=== PATIENT | female | born 1950 | race Caucasian/White ===

== ENCOUNTER 2023-01-30 08:34 | Emergency (ER) | payer OTHER ==
[~2023-01-30] VITALS: Ht 162.6 cm; Wt 69.9 kg
[2023-01-30 08:44] VITALS: BP_SYST 163
[2023-01-30] MEDS ORDERED: KETOROLAC TROMETHAMINE 60 MG/2 ML VIAL IM ONE (09:30)
[2023-01-30] MEDS ORDERED: IBUP-1971 PO (09:42)
[2023-01-30] MEDS ORDERED: HYDR-3917 PO ×2 (09:42)
[2023-01-30 09:47] LABS: BILIRUBIN,URINE NEGATIVE (NEGATIVE); BLOOD, URINE TRACE (NEGATIVE); CLARITY/URINE SLIGHTLY HAZY (CLEAR); COLOR,URINE YELLOW (YELLOW); GLUCOSE,URINE NEGATIVE (NEGATIVE); KETONES,URINE NEGATIVE (NEGATIVE); LEUKOCYTE ESTERASE ,URINE NEGATIVE (NEGATIVE); NITRITE, URINE NEGATIVE (NEGATIVE); PROTEIN URINE NEGATIVE (NEGATIVE); UROBILINOGEN,URINE 0.2 (0.2-1.0)
[2023-01-30 09:51] LABS: BACTERIA,URINE FEW /HPF (None Seen); RBC,URINE 0-3 /HPF (0-3); WBC,URINE 0-3 /HPF (0-3); YEAST,URINE Few /HPF (None Seen)
[2023-01-30 09:59] VITALS: BP_SYST 169
[2023-01-30] MEDS ORDERED: MORPHINE 4 MG INJ. 4 MG/ML VIAL IM ONE (10:00)
[2023-01-31] MEDS ORDERED: HYDR-3927 PO (10:42)
== END 2023-01-30 10:11 | disposition home or self-care (01) ==
LOC: SED 08:34
DX: M54.50 Low back pain, unspecified (principal); I10 Essential (primary) hypertension; Z79.899 Other long term (current) drug therapy
CPT/HCPCS: 99284; 81000; 87086; 96372; J1885; J2270